=== PATIENT | male | born 1995 | race Caucasian/White ===

== ENCOUNTER 2017-09-17 13:34 | Emergency (ER) | payer MEDICAID ==
[~2017-09-17] VITALS: Ht 170.2 cm; Wt 62.8 kg
[2017-09-17] MEDS ORDERED: CEPH500C5 PO (14:44)
[2017-09-17] MEDS ORDERED: SULF1TAB49 PO (14:44)
[2017-09-17 14:50] VITALS: BP 115/63
== END 2017-09-17 14:51 | disposition home or self-care (01) ==
LOC: ER 13:35
DX: L03.317 Cellulitis of buttock (principal); R59.0 Localized enlarged lymph nodes; F17.200 Nicotine dependence, unspecified, uncomplicated; F12.10 Cannabis abuse, uncomplicated; Z79.899 Other long term (current) drug therapy
CPT/HCPCS: 99283

== ENCOUNTER 2017-12-20 15:20 | Emergency (ER) | payer MEDICAID ==
[~2017-12-20] VITALS: Ht 170.2 cm; Wt 58.0 kg
[~2017-12-20 15:20] MED LIST: CEPH500C5 PO
[2017-12-20 15:40] VITALS: BP 134/84
[2017-12-20] MEDS ORDERED: IBUP-1984 PO (17:33)
[2017-12-20] MEDS ORDERED: CLIN300C85 PO (17:33)
== END 2017-12-20 17:57 | disposition home or self-care (01) ==
LOC: ER 15:21
DX: L02.31 Cutaneous abscess of buttock (principal); M25.562 Pain in left knee; F12.90 Cannabis use, unspecified, uncomplicated; Z79.899 Other long term (current) drug therapy
CPT/HCPCS: 29505; 99283

== ENCOUNTER 2022-10-21 18:51 | Emergency (ER) | payer MEDICAID ==
[~2022-10-21] VITALS: Ht 170.2 cm; Wt 61.4 kg
[~2022-10-21 18:51] MED LIST changes: -CEPH500C5 PO; +CLIN-97 PO
[2022-10-21 19:03] VITALS: BP 143/92
== END 2022-10-21 20:33 | disposition left against medical advice (07) ==
LOC: ER 18:52
DX: K04.7 Periapical abscess without sinus (principal); Z53.21 Procedure and treatment not carried out due to patient leaving prior to being seen by health care provider
CPT/HCPCS: 99281

== ENCOUNTER 2022-11-09 20:52 | Emergency (ER) | payer MEDICAID ==
[~2022-11-09] VITALS: Ht 177.8 cm; Wt 60.4 kg
[2022-11-09 21:01] VITALS: BP 128/82; PULSE 118; RESP 18; TEMP 97.6; O2SAT 98
[2022-11-10] MEDS ORDERED: CLIN-214 PO (01:27)
[2022-11-10] MEDS ORDERED: AMOX-419 PO (01:27)
[2022-11-10] MEDS ORDERED: acetaminophen 325mg tablet PO ONE (01:30)
[2022-11-10] MEDS ORDERED: ibuprofen tablet 400 MG TABLET PO ONE (01:30)
[2022-11-10] MEDS ORDERED: clindamycin 150mg capsule PO ONE (01:30)
[2022-11-10] MEDS ORDERED: ondansetron 4mg rapidly disintigrating tab PO ONE (01:30)
[2022-11-10] MEDS ORDERED: ceFAZolin 1gm IM kit IM ONE (01:30)
== END 2022-11-10 01:36 | disposition home or self-care (01) ==
LOC: ER 20:52
DX: K02.9 Dental caries, unspecified (principal); K08.89 Other specified disorders of teeth and supporting structures; F17.200 Nicotine dependence, unspecified, uncomplicated; F12.90 Cannabis use, unspecified, uncomplicated; Z79.2 Long term (current) use of antibiotics
CPT/HCPCS: 99283